=== PATIENT | female | born 1965 | race Caucasian/White ===

== ENCOUNTER → 2021-05-13 10:32 | Outpatient (CLI) | payer OTHER, SELFPAY ==
--- NOTE | 2021-05-13 | BRBX_PTH ---
PATIENT: BOUBACAR GARRISON LOC: [facility] U#:[id number] AGE/SX: 59/F ROOM: RE05/13/[address]: Dr. Hermes John MD : 1965 BED: DIS: SPEC #: [id number] RECD: 05/13/21 13:06 STATUS: DISHA PITER #: [id number] RUBY: 05/13/21 00:[address]: Hermes John DEPT: SURGICAL PATHOLOGY RECD BY: Tera Beckwith ENTERED: 05/13/21 13:06 SP TYPE: BREAST BX ELSA DR: No Primary Care Phys Tissues: Left breast, NOS Procedures: Surgery Specimen Level IV HEADER OPERATION: Left breast stereotactic needle core biopsy PRE-OP DIAGNOSIS: Microcalcifications, left breast, 1 o?clock posterior depth TISSUE SUBMITTED: Left breast tissue ISCHEMIC TIME: 1 minute FIXATION TIME: 18 hours MICROSCOPIC DIAGNOSIS Left breast, microcalcifications 1 o?clock posterior depth, stereotactic core biopsy: Extensive fibrosis and adenosis. Lobular involution and focal changes consistent with ruptured cyst. Focal microcalcifications. Negative for atypia or malignancy. See comment. TI:zarina 05/14/2021 COMMENT Correlation with clinical, radiologic findings and appropriate follow up are necessary. MICROSCOPIC DESCRIPTION Slides are reviewed. GROSS DESCRIPTION Received in fixative is one container labeled with the patient's name and designated left breast. The specimen consists of multiple elongated fragments of middleton-yellow fibroadipose tissue that in aggregate measure 7.5 x 3 x 0.3 cm. The entire specimen is submitted in three cassettes. / TI:zarina 05/13/21 TC:5 CPT: 27046
--- NOTE | 2021-05-13 13:02 | PCM.HP.BLA ---
History and Physical Date of Admission: 05/13/21 Nhi Concepcion is a 55 year old female who presents here today for follow up breast cancer. ? ? Per Dr. Israel's previous note: H/o?noted a mass in her lower left mid breast. She sought attention for this to her PCP. ? Diagnostic mammogram and ultrasound 08/17/2019: Comparison is made to exams dated: ?10/17/2016 mammogram and 05/15/2016 mammogram - [facility]. ?Color flow and real-time ultrasound of the left breast 1-2 o'clock, 7-8 o'clock, 11 o'clock, and axilla regions were performed on the areas of interest. ?Cisneros scale images of the real-time examination were reviewed. There is a 1.6 cm irregular solid mass in the left breast at 7 o'clock anterior depth 2 cm from the nipple. ?This irregular solid mass is hypoechoic with posterior acoustic shadowing. ?This correlates as palpated. There also is a benign 2.1 cm oval cyst in the left breast at 1 o'clock middle depth 5 cm from the nipple. ?This oval cyst is anechoic. ?This abnormality is decreased in size and correlates as palpated and with mammography findings. No abnormalities were seen sonographically in the left axilla. IMPRESSION: INCOMPLETE: NEEDS ADDITIONAL IMAGING EVALUATION The 1.6 cm irregular solid mass in the left breast at 7 o'clock anterior depth is suspicious of malignancy. ?An ultrasound guided biopsy is recommended. The 2.1 cm oval cyst in the left breast at 1 o'clock middle depth is consistent with a simple cyst and is benign. There is no abnormality seen in the left breast to correspond with the area of clinical concern indicated by a BB marker in the lower inner quadrant, however, ultrasound is recommended. ?There is no abnormality seen in the left breast to correspond with the area of clinical concern at 11 o'clock which is consistent with normal fibroglandular tissue. ? Underwent core needle biopsy with clip placement 08/23/2019. ? Pathology: Left breast, 7 o'clock, 2 cm from nipple, ultrasound-guided core biopsy with heart-shaped clip placement - Invasive lobular carcinoma, provisional histologic grade 2, see comment. Estrogen Receptor (ER) ???Positive (>90%) ???Stain intensity: ?strong ???Internal controls: appropriately staining ???External controls: appropriately stained Progesterone Receptor (PgR) ???Positive (5%) ???Stain intensity: ?moderate ???Internal controls: appropriately staining ???External controls: appropriately stained HER2 (ERBB2) IMMUNOHISTOCHEMISTRY ASSAY Interpretation: NEGATIVE for HER2 (ERBB2) Expression Score: ??1+ ? MRI breast 09/16/2019: Irregular spiculated enhancing mass within the lower inner left breast containing with post-biopsy metallic marker, corresponding to the biopsy-proven invasive lobular carcinoma. There is associated skin retraction. Surgical consultation is recommended for known left breast invasive lobular carcinoma. Enhancing mass in the right breast at the 4 o'clock axis measuring 0.5 cm. Second look ultrasound is recommended for further evaluation. If there is no sonographic correlate, MRI-guided biopsy is recommended. Left internal mammary lymph node. Surgical consultation is recommended. Right lung nodule measuring 0.[address] of the chest is recommended for further evaluation. ? Underwent an MRI guided right breast biopsy. ? Pathology: Right breast, 4 o'clock, anterior depth, MRI guided biopsy with hourglass clip placement -Fibrocystic changes including microcysts, fibrosis, apocrine metaplasia, and usual ductal hyperplasia. ? CT C/A/P 10/03/2019: Lung parenchyma and pleura. * ?Moderate diffuse centrilobular emphysematous changes in the upper lobes bilaterally * ?Small amount of bibasilar atelectasis or scarring Thoracic inlet, heart, and mediastinum: Multiple subcentimeter lymph nodes are noted in the axillary regions bilaterally. ?No enlarged nodes5 in the axillary, mediastinal, or hilar regions. The thoracic aorta and main pulmonary artery are normal in caliber. The cardiac chambers are normal in size. No coronary artery atherosclerotic calcifications are noted, although the study is not optimized for coronary assessment. No pericardial effusion or thickening. Bones and soft tissues: ?No oval-shaped nodular area measuring 2.1 cm lateral aspect of the LEFT breast image 86 corresponds to the cyst noted on previous mammograms. ?Rounded area of increased attenuation in the subareolar region of the LEFT breast probably represents surgical marker. Destructive bone lesion. Chest wall is unremarkable. ? Lower thorax: Unremarkable. Liver: There is a 4.3 cm simple cyst in the posterior segment of the RIGHT lobe of the liver Homogeneous texture. Biliary: No ductal dilatation is seen. ?. Spleen: Spleen is unremarkable. Pancreas: No mass or duct dilation. Adrenals: Adrenal glands are unremarkable. Kidneys: No mass, calculus or hydronephrosis is seen. GI tract: No bowel dilatation is seen. ?No evidence of obstruction. Mild diverticulosis but no evidence of diverticulitis Lymph nodes: No evidence of adenopathy. Mesentery/Peritoneum: No ascites or mass. Vasculature: ??No evidence of dilatation of the abdominal aorta. Pelvis: No mass or ascites. ?There is a sclerotic density in the RIGHT iliac bone image 62 ?axial and 63 coronal. ?This measures 1.1 cm and has irregular margins. ?Etiology of this finding is uncertain. ?Nuclear medicine bone scan recommended for further evaluation Bones/Soft Tissues: No acute abnormality. ? ? ? Previous?therapy: 1) Neoadjuvant AC followed by T. ? ? ? Underwent partial mastectomy sentinel lymph node biopsy on 03/28/2020. ? ? Pathology: 1. Left breast, needle-localized lumpectomy (A) - Invasive lobular carcinoma, Tresa Grade 2, status post neoadjuvant chemotherapy. - Lobular neoplasia (ALH/LCIS). - Tumor bed fibrosis, biopsy clip, and biopsy site, identified. 2. Left breast, sentinel lymph node, biopsy (B) - One lymph node, negative for metastatic carcinoma (0/1). MKK/slb 04/03/2020 COMMENT 1. The patient underwent neoadjuvant chemotherapy (as per OP note dated 03/28/[address] Kee Callaway). The tumor shows non-concentric response to neoadjuvant chemotherapy, and is seen discontinuously involving tissue slices #5-12. The largest contiguous dimension of the tumor is estimated at 23 mm; the fibrous tumor bed is estimated at 41.5 mm. Immunohistochemical stains AE1/3 (blocks A3-6, 8, 9) highlight the infiltrative epithelial nature of the lesion. Select pertinent slides reviewed with Dr. Emma Escobedo who concurs invasive carcinoma is present and involves the inferior margin. 2. Immunohistochemical stains AE1/3 (block B1, 2) support the absence of an occult epithelial process. Laboratory Developed Test (LDT) Disclaimer: Positive and negative controls stain appropriately. Performance characteristics of immunohistochemical, immunofluorescent and chromogenic in-situ hybridization tests have been determined by [facility]'s [facility] [place] ([facility]) in a manner consistent with CLIA requirements. One or more of these tests have not been cleared or approved by the FDA. [facility] is regulated under CLIA as qualified to perform high-complexity testing. These tests are used for clinical purposes. They should not be regarded as investigational or for research. SYNOPTIC REPORT OF [facility] PATHOLOGIC FINDINGS LEFT BREAST LUMPECTOMY: ?BREAST INVASIVE CARCINOMA WORKSHEET ?Part: A-B Procedure: ?Excision (less than total mastectomy) Specimen Laterality: ?Left Tumor size: Size of largest invasive carcinoma: ?Greatest dimension of largest focus of invasion >1 mm: 23 mm? Tumor Focality: ?Single focus of invasive carcinoma Histologic Type of Invasive Carcinoma: ?Invasive lobular carcinoma Histologic Grade: ?Glandular (Acinar) / Tubular Differentiation: ?Score 3 ?Nuclear Pleomorphism: ?Score 2 ?Mitotic Rate: ?Score 1 ?Overall Grade: ?Grade II Ductal Carcinoma In Situ: ?Not identified Tumor Extension: Skin: ?Skin is present and uninvolved Nipple: ?Not applicable, no nipple is present Skeletal muscle: ?No skeletal muscle is present Invasive Carcinoma Margins: ?Margin(s) positive for invasive carcinoma?Inferior ?Extent: Rare single cells on ink over an area of 2mm ?Distance of invasive carcinoma to posterior margin: 0.2 mm DCIS Margins: ?Not applicable (no DCIS in specimen) Lymph Nodes: ?Uninvolved by tumor cells ?Total number of lymph nodes examined: 1 ?Number of sentinel lymph nodes examined: 1 Treatment Effect: ?Treatment effect in the breast ?Probable or definite response to presurgical therapy in the invasive carcinoma ?No lymph node metastases and no prominent fibrous scarring or histiocyte aggregates in the nodes Lymph-Vascular Invasion: ?Not identified Pathologic Stage Classification (pTNM,AJCC 8th ed) TNM Descriptor(s): ?y (post- treatment) Primary Tumor (Invasive Carcinoma) (pT): ?pT2 Regional Lymph Nodes (pN): ?Modifier: ?(sn): [place] node(s) evaluated Category (pN): ?pN0 Distant metastasis: ?Distant Metastasis (pM) Not applicable/Not confirmed pathologically in this case ? Underwent reexcision on 05/23/2020. ? Pathology: FINAL DIAGNOSIS Left breast, re-excision lumpectomy - Scar, hematoma, foreign body giant cell reaction, consistent with prior surgical procedure. -Skin with no significant findings. - No residual malignancy identified. ? ? ? RADIATION:07/12/20 - 08/14/20 ? ? Current therapy:None-Did not tolerate all three AI's-Stopped last AI (aromasin) end of October 2020. Began?arimidex?after radiation ? Pt. did not start tamoxifen as prescribed in November 2020. ? ? ? Appetite:On and off.?Wt. stable. Energy level:I've been anxious. There has been a lot going on at work. Pt. is taking caffeine pills twice daily. Denies fevers or recent illness. Resp:denies cough or sob Cardiac:denies chest pain/palpitations GI:denies abd pain, n/v, moving bowels regularly :denies dysuria/hematuria Extrem:denies pain Endo:denies?hot flashes Neuro:denies symptoms of neuropathy Skin:denies rashes/lesions Heme:denies bleeding ? The ROS is otherwise negative. ? Past medical history, appointments, medications, allergies reviewed. No changes. ? ? EXAM: BP 141/103 Pulse 77 Temp 36.8 ?C (98.3 ?F) Wt 55.3 kg (122 lb) LMP 05/05/2012 BMI 20.94 kg/m? ? ? APPEARANCE Well appearing-anxious, alert, in no acute distress, well-hydrated, well nourished. HEART RRR with normal S1 and S2, no murmurs LUNG clear to auscultation BREAST FEMALE no mass/nodule b/l, L lower surgical defect/radiation changes, dense tissue b/l LYMPH NODES No cervical lymphadenopathy, No supraclavicular lymphadenopathy and No axillary lymphadenopathy. ABDOMEN bowel sounds normoactive, soft, non-tender, non-distended, without organomegaly or palpable masses EXTREMITIES No edema NEURO Awake, alert and oriented x 3, Normal gait and No involuntary motions. SKIN Skin color, texture, turgor normal, no suspicious rashes or lesions ? ? RADIOLOGY: Mammogram 03/18/21: IMPRESSION: INCOMPLETE: NEEDS ADDITIONAL IMAGING EVALUATION The possible asymmetry in the right breast posterior depth inner region seen on the craniocaudal view only is indeterminate. ?Additional views are recommended. The possible calcification in the left breast upper outer aspect posterior depth is indeterminate. ?Magnification views are recommended. ? ? ASSESSMENT/PLAN: 1. Malignant neoplasm of lower-inner quadrant of left breast in female, estrogen receptor positive (HCC) - ICD9: 174.3, V86.0, ICD10: C50.312, Z17.0 (primary diagnosis) cT2 cN2b M0 ER/FL positive, HER2 negative stage IIIA invasive lobular carcinoma the left breast - ?No concerning findings on exam. - ?Pt. did not tolerate all 3 AI's. - ?Pt. did not start tamoxifen as prescribed November 2020. - ?Reviewed mammogram with pt. - Advised pt. to stop caffeine pills. - B/l dx mammogram/US soon. - ?Follow up in 3 months-pending above. - ?Pt. aware to call office with any questions/concerns. ? ? The patient indicates understanding of these issues and agrees with the plan.? ? All documentation fro previous visit of?11/27/20-Dr. Israel/myself?was copied and pasted, documentation has been reviewed and edited as necessary for today's visit. ? ? ? Dottie Reece, SHIFT SUPERVISOR FILM PROCESSING.LASTING FLOORWORKER I have re-examined the patient. There are no clinical changes since date of exam.
--- NOTE | 2021-05-13 13:03 | PCM.OPRPT ---
Problems Associated Problem List Diagnoses (1) Microcalcifications of the breast: Report of Operation Date of Procedure: 05/13/21 Pre-Operative Diagnosis: Microcalcifications left breast Post-Operative Diagnosis: Same Surgery/Procedure Performed:: Left stereotactic breast biopsy Surgeon: Hermes John cosmetic account coordinator: None Type of Anesthesia: Local Estimated Blood Loss (mL): < 25 cc Description of Procedure: Patient was brought in the mammography unit. Placed in the supine position. Left breast was brought down through the opening. Lateral to medial view was obtained. ?15 degree views were obtained. Targeted on the microcalcifications. Prepped the breast with Betadine. Injected local. Made a skin daiana. Placed a needle in the prefire position. Took 2 more stereo view showing the area to be adequately targeted. Fired the needle took 360 degrees circumferential biopsies. X-ray my specimen. Microcalcifications were identified. Back to medial all 5 mm. Placed a petite clip in the breast. Remove the needle. I placed a 4-0 nylon suture closing the wound. Sterile dressings were applied. Standard mammogram views were obtained. The area in question was targeted appropriately. Patient tolerated the procedure well. Admit VTE Documentation VTE Present on Admission: No VTE Mechan Device Prophylaxis: None VTE Pharm Prophylaxis ordered?: No Reason prophylaxis not ordered:: Treatment Not Indicated
== END ==
PROVIDERS: Referring Provider Surgery; Visit Provider Surgery
DX: R92.8 Other abnormal and inconclusive findings on diagnostic imaging of breast (principal)
CPT/HCPCS: 19081; 88305; J7050